=== PATIENT | female | born 1945 | race Two or more races ===

== ENCOUNTER 2022-02-26 09:34 | Inpatient (IN) | payer BC, MEDICARE, OTHER ==
[~2022-02-26] VITALS: Ht 154.9 cm; Wt 57.2 kg
[2022-02-26] MEDS ORDERED: ASPirin 325 MG TAB PO ONE (10:45)
[2022-02-26] MEDS ORDERED: MECLIZINE HCL 25 MG TAB PO ONE (10:45)
[2022-02-26 10:55] LABS: Urine Bacteria NONE SEEN /hpf (None Seen); Urine Blood Negative /uL (Negative); Urine Mucus FEW (None Seen); Urine Specific Gravity 1.022 (1.001-1.035); Urine WBC 15 /hpf (0 - 5)
[2022-02-26 11:03] LABS: Basophils # (auto) 0.1 10 ^3/uL (0-0.2); Basophils % (auto) 1.3 % (0.0-2.0); Eosinophils # (auto) 0 10 ^3/uL (0-0.8); Eosinophils % (auto) 1.2 % (0.0-7.0); Hematocrit 43.7 % (36.0-46.0); Hemoglobin 14.3 g/dL (12.2-16.2); Lymphocytes % (auto) 25.4 % (10.0-50.0); Mean Corpuscular Hemoglobin 29.9 pg (28.0-32.0); Mean Corpuscular Hgb Conc. 32.6 g/dL (32.0-36.0); Mean Corpuscular Volume 91.7 fL (80.0-100.0); Monocytes # (auto) 0.4 10 ^3/uL (0-1.3); Monocytes % (auto) 8.7 % (0.0-12.0); Neutrophils # (auto) 2.6 10 ^3/uL (1.6-8.6); Neutrophils % (auto) 63.4 % (37.0-80.0); Nucleated Red Blood Cells % 0.1 %; Red Blood Cells 4.77 10^6/uL (4.0-5.20); Red Cell Distribution Width 13.5 % (11.8-14.3); White Blood Cell 4.1 10^3/uL (4.4-10.8)
[2022-02-26 11:28] LABS: Albumin 3.9 g/dL (3.4-5.0); BUN/Creatinine Ratio 17.5; Bilirubin, Total 0.6 mg/dL (0.2-1.0); Calcium 9.3 mg/dL (8.5-10.1); Potassium 3.8 mmol/L (3.5-5.1); Total Protein 7.3 g/dL (6.4-8.2)
[2022-02-26] MEDS ORDERED: ACETAMINOPHEN 325 MG TAB PO PRN (14:00)
[2022-02-26] MEDS ORDERED: MECLIZINE HCL 25 MG TAB PO PRN (14:15)
[2022-02-26] MEDS ORDERED: PANTOPRAZOLE 40 MG/10 ML VIAL INJ IV ONE (14:15)
[2022-02-26 15:25] LABS: Cholesterol 197 mg/dL (< 200); Triglycerides 156 mg/dL (< 150)
[2022-02-26 15:28] LABS: HDL Cholesterol 86 mg/dL (40-59); LDL Cholesterol 109 mg/dL (< 100)
[2022-02-26 21:45] LABS: Alcohol, Urine < 3.0 mg/dL (0-10); Amphetamine Screen, Urine NEGATIVE (NEGATIVE); Barbiturate Scree,Urine NEGATIVE (NEGATIVE); Benzodiazephine Screen, Urine NEGATIVE (NEGATIVE); Cannabinoid Screen, Urine NEGATIVE (NEGATIVE); Cocaine Screen, Urine NEGATIVE (NEGATIVE); Opiate Scree,Urine NEGATIVE (NEGATIVE); Phencyclidine Screen, Urine NEGATIVE (NEGATIVE)
[2022-02-27] MEDS: SODIUM CHLORIDE 0.9% 1,000 ML IV SCH ×3 (04:25→18:50)
[2022-02-27] MEDS ORDERED: hydrALAZINE HCL 20 MG/ML VL IV ONE (05:45)
[2022-02-27 05:51] LABS: Basophils # (auto) 0.1 10 ^3/uL (0-0.2); Basophils % (auto) 1.5 % (0.0-2.0); Eosinophils # (auto) 0.1 10 ^3/uL (0-0.8); Eosinophils % (auto) 2.7 % (0.0-7.0); Lymphocytes # (auto) 1.1 10 ^3/uL (0.4-5.4); Lymphocytes % (auto) 29.8 % (10.0-50.0); Mean Corpuscular Hemoglobin 29.9 pg (28.0-32.0); Mean Corpuscular Hgb Conc. 32.6 g/dL (32.0-36.0); Mean Corpuscular Volume 91.6 fL (80.0-100.0); Monocytes # (auto) 0.5 10 ^3/uL (0-1.3); Monocytes % (auto) 13.1 % (0.0-12.0); Neutrophils % (auto) 52.9 % (37.0-80.0); Nucleated Red Blood Cells % 0.1 %; Red Cell Distribution Width 13.9 % (11.8-14.3); White Blood Cell 3.8 10^3/uL (4.4-10.8)
[2022-02-27 06:02] LABS: Albumin 3.6 g/dL (3.4-5.0); BUN/Creatinine Ratio 17.7; Calcium 9.2 mg/dL (8.5-10.1); Potassium 4.2 mmol/L (3.5-5.1)
[2022-02-27 06:05] LABS: Bilirubin, Total 0.7 mg/dL (0.2-1.0); Total Protein 7.4 g/dL (6.4-8.2)
[2022-02-27] MEDS: ASPirin 81 mg TAB PO SCH (11:04)
[2022-02-27] MEDS: ENOXAPARIN SOD 40 MG/0.4 ML SYRINGE SC SCH (11:04)
[2022-02-27] MEDS: PANTOPRAZOLE 40 MG/10 ML VIAL INJ IV SCH (11:04)
[2022-02-27] MEDS ORDERED: LISINOPRIL 10 MG TAB PO ONE (16:00)
[2022-02-27 18:21] VITALS: BP 172/90
[2022-02-27] MEDS: hydrALAZINE HCL 20 MG/ML VL IV PRN (19:42)
[2022-02-27] MEDS ORDERED: POM PO (19:55)
[2022-02-27] MEDS ORDERED: LEVO25TA6 PO (19:55)
[2022-02-27] MEDS ORDERED: OMEP-260 PO (19:55)
[2022-02-27] MEDS ORDERED: CHOL20009 PO (19:55)
[2022-02-27] MEDS ORDERED: NIFE1TAB30 PO (19:55)
[2022-02-27] MEDS ORDERED: LISI-716 PO (19:55)
[2022-02-27] MEDS ORDERED: PSYL58.632 PO (19:55)
[2022-02-27 20:00] VITALS: BP 157/84
[2022-02-27 22:14] VITALS: BP 157/84
[2022-02-28] VITALS (9 sets, daily range): BP systolic 146–162; BP diastolic 81–94
[2022-02-28] MEDS: hydrALAZINE HCL 20 MG/ML VL IV PRN ×3 (03:55→22:02)
[2022-02-28] MEDS: LEVOTHYROXINE SODIUM 25 MCG TAB PO SCH (06:27)
[2022-02-28] MEDS: SODIUM CHLORIDE 0.9% 1,000 ML IV SCH ×2 (08:54→23:12)
[2022-02-28] MEDS: LISINOPRIL 10 MG TAB PO SCH (09:43)
[2022-02-28] MEDS: ENOXAPARIN SOD 40 MG/0.4 ML SYRINGE SC SCH (09:44)
[2022-02-28] MEDS ORDERED: LORazepam 2MG/ML-1ML VIAL IV PRN (09:45)
[2022-02-28] MEDS: PANTOPRAZOLE 40 MG/10 ML VIAL INJ IV SCH (09:53)
[2022-02-28] MEDS: ASPirin 81 mg TAB PO SCH (09:57)
[2022-02-28] MEDS ORDERED: ATORVASTATIN 20 MG TAB PO SCH (22:00)
[2022-03-01 05:17] VITALS: BP 150/90
[2022-03-01] MEDS: LEVOTHYROXINE SODIUM 25 MCG TAB PO SCH (06:04)
[2022-03-01] MEDS: hydrALAZINE HCL 20 MG/ML VL IV PRN (06:05)
[2022-03-01 09:00] VITALS: BP 139/86
[2022-03-01] MEDS: ENOXAPARIN SOD 40 MG/0.4 ML SYRINGE SC SCH (09:31)
[2022-03-01] MEDS: LISINOPRIL 10 MG TAB PO SCH (09:31)
[2022-03-01] MEDS: ASPirin 81 mg TAB PO SCH (09:31)
[2022-03-01] MEDS ORDERED: ASPI-325 PO (11:40)
[2022-03-01] MEDS ORDERED: ATOR20TA50 PO (11:40)
== END 2022-03-01 13:32 | disposition home or self-care (01) | DRG 149 ==
LOC: ER 09:34 → OVERFLOW 14:06 → TELE-EAST 02-27 16:47
PROVIDERS: ADMIT Nurse Practitioner Family; ATTEND Student in an Organized Health Care Education/Training Program
DX: H81.10 Benign paroxysmal vertigo, unspecified ear (principal); G45.9 Transient cerebral ischemic attack, unspecified; I10 Essential (primary) hypertension; Z20.822 Contact with and (suspected) exposure to COVID-19; E78.5 Hyperlipidemia, unspecified; F17.200 Nicotine dependence, unspecified, uncomplicated; Z79.82 Long term (current) use of aspirin; Z79.899 Other long term (current) drug therapy; Z83.3 Family history of diabetes mellitus; Z90.710 Acquired absence of both cervix and uterus
CPT/HCPCS: 36415; 70450; 70551; 71045; 80053; 80061; 80307; 81001; 83036; 84443; 84484; 85025; 87426; 93306; 93886; 96372; 96374; 96375; C9113; G0378

== ENCOUNTER 2024-07-26 14:27 | Inpatient (IN) | payer MEDICARE ==
[~2024-07-26] VITALS: Ht 154.9 cm; Wt 60.5 kg
[~2024-07-26 14:27] MED LIST: ASPI-325 PO; ATOR20TA50 PO; CHOL20009 PO; LEVO25TA6 PO; LISI10TA34 PO; NIFE1TAB30 PO; OMEP1CAP70 PO; POM PO; PSYL58.632 PO
--- NOTE | 2024-07-26 16:18 | ED.PDOC ---
Musculoskeletal HPI Comments A 79 YEAR OLD FEMALE PRESENTS TO THE ED WITH COMPLAINT OF BILATERAL FOOT AND ANKLE SWELLING. PATIENT STATES SHE HAS BEEN EXPERIENCING BILATERAL ANKLE AND FOOT SWELLING WITH PAIN FOR THE PAST 2 DAYS. WALKING AND PHYSICAL ACTIVITY INCREASES BILATERAL ANKLE AND FOOT PAIN. PATIENT DENIES FALL INJURY, FEVER, CHILLS, SHORTNESS OF BREATH, CHEST PAIN, ABDOMINAL PAIN, NAUSEA, VOMITING, HEADACHE, OR OTHER COMPLAINTS. NO OTHER SYMPTOMS OR MODIFYING FACTORS AT THIS TIME. PATIENT IS ALERT, ORIENTED X 4, AND HAS STEADY GAIT. Chief Complaint: Lower Extremity Time Seen by MD: 14:43 Reviewed Notes: Nurses Notes, Medications, Allergies Allergies: Coded Allergies: NO KNOWN ALLERGIES (Unverified , 02/26/22) Home Meds Active Scripts Atorvastatin Calcium (ATORVASTATIN CALCIUM) 20 Mg Tab, 40 MG PO HS for 30 Days, #60 TAB Prov:LENY SAMPSON MD 03/01/22 Aspirin (Aspirin Low Dose) 81 Mg Tab, 81 MG PO DAILY for 30 Days, #30 TAB Prov:LENY SAMPSON MD 03/01/22 Reported Medications Psyllium (Metamucil Fiber) 51.7 % Wild, 51.7 % PO DAILY, PACK 02/27/22 Cholecalciferol (VITAMIN D) 2,000 Unit Tab, 2000 UNIT PO DAILY, TAB 02/27/22 Patients Own Medication (PATIENTS OWN MEDICATION) ., 5 MG PO DAILY PTS OWN MED-OBTAIN FROM PT AND SEND TO RX DRUG: OXYBUTYNIN FREQ: QD RX# EXP: DATE DISP: TECH: RPH: 02/27/22 Omeprazole (Omeprazole Dr) 20 Mg Cap, 20 MG PO BID, CAP 02/27/22 Nifedipine (Nifedipine Er) 60 Mg Tab, 1 TAB PO DAILY, #30 TAB 5 Refills 02/27/22 Lisinopril (Lisinopril) 10 Mg Tab, 10 MG PO DAILY for 30 Days, MG 02/27/22 Levothyroxine Sodium (Levothyroxine Sodium) 25 Mcg Tab, 75 MCG PO QAM, MCG 02/27/22 Information Source: Patient Mode of Arrival: Ambulatory Location: Bilateral Extremity Location: Ankle, Foot Timing: Days Prehospital treatment: None Severity: Moderate Able to Move Extremity: Yes Bear Weight: Fully Pain: Moderate Mechanism: No Trauma, Spontaneous Circumstances: Spontaneous Onset of Symptoms: Spontaneous Symptoms: Swelling, Pain, Erythema DVT Risk Factors: NONE Associated signs and symptoms: Ankle pain, Foot pain Past Medical History PAST MEDICAL HISTORY: High Lipids, HTN, Thyroid Surgical History: Appendectomy, Hysterectomy, Tonsillectomy TOUCH UP EDGER History: No Pertinent TOUCH UP EDGER History Family History Family History: Reviewed,noncontributory to illness Social History Smoker: Non-Smoker Alcohol: Denies ETOH Use Drugs: Denies Drug Use Lives In: Home Constitutional: denies: chills, diaphoresis, fatigue, fever, malaise, sweats, weakness, others EENTM: denies: blurred vision, double vision, ear bleeding, ear discharge, ear drainage, ear pain, ear ringing, eye pain, eye redness, hearing loss, mouth pain, mouth swelling, nasal discharge, nose bleeding, nose congestion, nose pain, photophobia, tearing, throat pain, throat swelling, voice changes, others Respiratory: denies: cough, hemoptysis, orthopnea, SOB at rest, shortness of breath, SOB with excertion, stridor, wheezing, others Cardiovascular: denies: chest pain, dizzy spells, diaphoresis, Dyspnea on exertion, edema, irregular heart beat, left arm pain, lightheadedness, palpitations, PND, syncope, others Gastrointestinal: denies: abdomen distended, abdominal pain, blood streaked bowels, constipated, diarrhea, dysphagia, difficulty swallowing, hematemesis, melena, nausea, poor appetite, poor fluid intake, rectal bleeding, rectal pain, vomiting, others Genitourinary: denies: abnormal vagina bleeding, burning, dyspareunia, dysuria, flank pain, frequency, hematuria, incontinence, pain, , vagina discharge, urgency, others Neurological: denies: dizziness, fainting, headache, left sided numbness, left sided weakness, numbness, paresthesia, pre-existing deficit, right sided numbness, right sided weakness, seizure, speech problems, tingling, tremors, weakness, others Musculoskeletal: reports: joint pain, joint swelling, others (BILATERAL FOOT AND ANKLE SWELLING WITH PAIN); denies: back pain, gout, muscle pain, muscle stiffness, neck pain Integumetry: denies: bruises, change in color, change in hair/nails, dryness, laceration, lesions, lumps, rash, wounds, others Allergic/Immunocompromised: denies: Difficulty Healing, Frequent Infections, Hives, Itching, others Hematologic/Lymphatic: denies: anemia, blood clots, easy bleeding, easy bruising, swollen glands, others Endocrine: denies: excessive hunger, excessive sweating, excessive thirst, excessive urination, flushing, intolerance to cold, intolerance to heat, unexplained weight gain, unexplained weight loss, others Psychiatric: denies: anxiety, bipolar disorder, depression, hopeless, panic disorder, schizophrenia, sleepless, suicidal, others All Other Systems: Reviewed and Negative Physical Exam General Appearance: No Apparent Distress, Normal HEENT: Normal ENT Inspection, PERRL/EOMI, Pharynx Normal, TMs Normal Neck: Full Range of Motion, Non-Tender, Normal, Normal Inspection Respiratory: Chest Non-Tender, Lungs Clear, No Accessory Muscle Use, No Respiratory Distress, Normal Breath Sounds Cardiovascular: No Edema, No JVD, No Murmur, No Gallop, Normal Peripheral Pulses, Regular Rate/Rhythm Breast Exam: Deferred Gastrointestinal: No Organomegaly, Non Tender, No Pulsatile Mass, Normal Bowel Sounds, Soft Genitalia: Deferred Pelvic: Deferred Rectal: Deferred Extremities: No calf tenderness, Normal capillary refill, Normal range of motion, No pedal edema, Swelling (TENDERNESS, MILD SWELLING AND REDNESS ON BILATERAL FOOT AND ANKLE, NO BONY TENDERNESS AND DEFORMITY. ), Tender (REDNESS AND MILD SWELLING ON BILATERAL FOOT AND ANKLE. ) Musculoskeletal : Apperance: Normal Neurologic: Alert, gis engineer II-XII nml as Tested, No Motor Deficits, Normal Affect, Normal Mood, No Sensory Deficits Cerebellar Function: Normal Reflexes: Normal Skin: Dry, Warm, Other (LOCALIZED ERYTHEMA, MILD SWELLING AND TENDERNESS ON BILATERAL ANKLE AND FOOT, NO LOWER LEGS REDNESS AND SWELLING, NO DVT SIGNS.+CELLULITIS OF FOOT and ankle. ) Peripheral Pulses: 2+ carotid (R), 2+ carotid (L), 2+ dorsalis pedis (R), 2+ dorsalis pedis (L) Lymphatic: No Adenopathy Was a procedure done? Was a procedure done?: No Differential Diagnosis EXT Differential Diagnosis: Cellulitis, CHF, Sprain, DJD, Strain, Arthritis X-Ray, Labs, Meds, VS Vital Signs Date Time Temp Pulse Resp B/P (MAP) Pulse Ox O2 Delivery O2 Flow Rate FiO2 07/26/24 17:32 99.7 98 16 157/88 (111) 95 99.7 07/26/24 15:56 108 18 95 Room Air 07/26/24 15:56 97.8 108 18 142/84 (103) 95 97.8 07/26/24 14:34 97.8 108 18 142/84 (103) 95 97.8 Lab Test 07/26/24 16:25 07/26/24 16:00 Range/Units White Blood Count 4.5 4.4-10.8 10^3/uL Red Blood Count 5.03 4.0-5.20 10^6/uL Hemoglobin 15.0 12.2-16.2 g/dL Hematocrit 44.5 36.0-46.0 % Mean Corpuscular Volume 88.5 80.0-100.0 fL Mean Corpuscular Hemoglobin 29.8 28.0-32.0 pg Mean Corpuscular Hemoglobin Concent 33.7 32.0-36.0 g/dL Red Cell Distribution Width 14.0 11.8-14.3 % Platelet Count 168 140-450 10^3/uL Mean Platelet Volume 10.0 6.9-10.8 fL Neutrophils (%) (Auto) 65.5 37.0-80.0 % Lymphocytes (%) (Auto) 18.7 10.0-50.0 % Monocytes (%) (Auto) 14.1 H 0.0-12.0 % Eosinophils (%) (Auto) 1.1 0.0-7.0 % Basophils (%) (Auto) 0.6 0.0-2.0 % Neutrophils # (Auto) 2.9 1.6-8.6 10 ^3/uL Lymphocytes # (Auto) 0.8 0.4-5.4 10 ^3/uL Monocytes # (Auto) 0.6 0-1.3 10 ^3/uL Eosinophils # (Auto) 0 0-0.8 10 ^3/uL Basophils # (Auto) 0 0-0.2 10 ^3/uL Nucleated Red Blood Cells 0.1 % Erythrocyte Sedimentation Rate Pending Sodium Level 137 136-145 mmol/L Potassium Level 3.2 L 3.5-5.1 mmol/L Chloride Level 101 98-107 mmol/L Carbon Dioxide Level 26 20-31 mmol/L Anion Gap 10 5-15 Blood Urea Nitrogen 15 9-23 mg/dL Creatinine 1.01 0.550-1.02 mg/dL Glomerular Filtration Rate Calc 56 >90 mL/min BUN/Creatinine Ratio 14.9 10.0-20.0 Serum Glucose 101 74-106 mg/dL Lactic Acid Level 1.4 0.4-2.0 mmol/L Uric Acid 4.5 3.1-7.8 mg/dL Calcium Level 10.4 8.7-10.4 mg/dL Urine Color Yellow Yellow Urine Clarity Clear Clear Urine pH 6.0 5.0-9.0 Urine Specific [place] 1.023 1.001-1.035 Urine Protein 1+ H Negative Urine Ketones Negative Negative Urine Blood 2+ H Negative /uL Urine Nitrite Negative Negative Urine Bilirubin Negative Negative Urine Urobilinogen Normal Negative mg/dL Urine Leukocyte Esterase 2+ Negative /uL Urine RBC 10 0 - 4 /hpf Urine Microscopic WBC 5 0-5 /HPF Urine Squamous Epithelial Cells Few <5 /hpf Urine Bacteria None seen None Seen /hpf Urine Hyaline Casts Few 0 - 2 /lpf Urine Mucus Few None Seen Urine Glucose Normal Normal mg/dL Current Medications Medications (Trade) Dose Ordered Sig/Jf Route Start Time Stop Time Status Last Admin Ceftriaxone Sodium 50 ml @ 100 mls/hr ONCE ONCE IV 07/26/24 17:30 07/26/24 17:59 DC 07/26/24 17:43 Sodium Chloride 1,000 ml @ 150 mls/hr [id number] ONCE IV 07/26/24 17:30 07/27/24 00:09 07/26/24 17:42 CLINICAL INDICATION: PAIN AND REDNESS, NO INJURY TECHNIQUE: 2 radiographic views of the right foot were obtained. Comparison: None FINDINGS/IMPRESSION: There is no evidence of acute fracture or dislocation. Sesamoid superimpose over cuboid. The visualized joint space is well maintained. The alignment is anatomical. There is no radiopaque foreign body. ATED BY: FRANCISCA ESCOBAR Jr., DO DICTATED DATE/TIME: 07/26/241721 SIGNED BY: FRANCISCA ESCOBAR Jr., SIGNED DATE/TIME: 07/26/241721 CC: CLINICAL INDICATION: PAIN AND REDNESS, NO INJURY TECHNIQUE: 2 radiographic views of the left foot were obtained. Comparison: None FINDINGS/IMPRESSION: There is no evidence of acute fracture or dislocation. The visualized joint space is well maintained. The alignment is anatomical. There is no radiopaque foreign body. ATED BY: FRANCISCA ESCOBAR Jr., DO DICTATED DATE/TIME: 07/26/241718 SIGNED BY: FRANCISCA ESCOBAR Jr., SIGNED DATE/TIME: 07/26/241718 CC: X-Ray, Labs, Meds, VS Comment EXTERNAL MEDICAL RECORDS REVIEWED: [NONE] INDEPENDENT HISTORIANS: [NONE] SOCIAL DETERMINANTS OF HEALTH: [NONE] LABS ORDERED: CBC, BMP, BNP, ESR, UA REVIEWED AND INTERPRETED RESULTS: K 3.2 IMAGING ORDERED: XR FOOT BILAT TREATMENTS ORDERED: NS 1 L IV, ROCEPHIN 1 G IV, CLINDAMYCIN 600 MG IV, POTASSIUM 40 MEQ P.O. PROCEDURES PERFORMED: NONE CRITICAL CARE TIME: NONE I HAVE DISCUSSED THE PATIENT WITH THE ATTENDING PHYSICIAN DR. TRAVIS AND HE AGREES WITH THE PATIENT'S PLAN OF CARE. UPON MY PHYSICAL EXAMINATION, THE PATIENT HAD REDNESS, SWELLING, AND PAIN TO HER BILATERAL FEET AND ANKLES CONSISTENT WITH ACUTE CELLULITIS, BUT NO OPEN WOUND OR PUS DRAINAGE NOTED. LABS WERE ORDERED FOR THE PATIENT WHICH REVEALED A POTASSIUM OF 3.2, BUT NO OTHER ACUTE FINDINGS. AN X-RAY OF THE PATIENT'S BILATERAL FEET WAS DONE WHICH WAS NORMAL. DUE TO THE PATIENT'S AGE, MEDICAL HISTORY, AND THE FACT THAT HER PHYSICAL EXAM FINDINGS APPEARING TO BE ACUTE CELLULITIS, I HAVE DETERMINED THE PATIENT NEEDS TO BE ADMITTED FOR FURTHER TREATMENT AND EVALUATION. THE ON-CALL HOSPITALIST WILL BE CONTACTED FOR ADMISSION OF THIS PATIENT. Images Reviewed?: Images reviewed and evaluated by me Time of 1ST Reevaluation: 18:00 Reevaluation 1ST: Unchanged Patient Education/Counseling: Diagnosis, Treatment Family Education/Counseling: Diagnosis, Treatment Departure 1 Departure Time of Disposition: 18:00 Impression: Primary Impression: Cellulitis of both feet Additional Impression: Hypokalemia Disposition: ADMITTED INPATIENT Condition: Serious Critical Care Note Critical Care Time?: No Stability Stability form required: No Unstable for transfer: Requires medication, ED Physician Assesment, Possible rapid decline I personally scribed for GRIS BORDEN ([email or web address]) on 07/26/24 at 16:18. Electronically submitted by Jason Servni ([email or web address]). I personally scribed for GRIS BORDEN ([email or web address]) on 07/26/24 at 17:41. Electronically submitted by Jason Servin ([email or web address]). GRIS BORDEN Jul 26, 2024 16:18
[2024-07-26 16:48] LABS: Basophils # (auto) 0 10 ^3/uL (0-0.2); Basophils % (auto) 0.6 % (0.0-2.0); Eosinophils # (auto) 0 10 ^3/uL (0-0.8); Eosinophils % (auto) 1.1 % (0.0-7.0); Hematocrit 44.5 % (36.0-46.0); Lymphocytes # (auto) 0.8 10 ^3/uL (0.4-5.4); Lymphocytes % (auto) 18.7 % (10.0-50.0); Mean Corpuscular Hemoglobin 29.8 pg (28.0-32.0); Mean Corpuscular Hgb Conc. 33.7 g/dL (32.0-36.0); Mean Corpuscular Volume 88.5 fL (80.0-100.0); Monocytes # (auto) 0.6 10 ^3/uL (0-1.3); Monocytes % (auto) 14.1 % (0.0-12.0); Neutrophils # (auto) 2.9 10 ^3/uL (1.6-8.6); Neutrophils % (auto) 65.5 % (37.0-80.0); Nucleated Red Blood Cells % 0.1 %; Platelet Count (auto) 168 10^3/uL (140-450); Red Blood Cells 5.03 10^6/uL (4.0-5.20); White Blood Cell 4.5 10^3/uL (4.4-10.8)
[2024-07-26 16:52] LABS: Chloride 101 mmol/L (98-107); Sodium 137 mmol/L (136-145)
[2024-07-26 16:53] LABS: Anion Gap 10 (5-15); Calcium 10.4 mg/dL (8.7-10.4); Carbon Dioxide 26 mmol/L (20-31)
[2024-07-26 16:54] LABS: Potassium 3.2 mmol/L (3.5-5.1)
[2024-07-26 16:58] LABS: BUN/Creatinine Ratio 14.9 (10.0-20.0); Blood Urea Nitrogen 15 mg/dL (9-23); Glucose 101 mg/dL (74-106)
[2024-07-26 17:08] LABS: Urine Bacteria None Seen /hpf (None Seen)
[2024-07-26 17:20] LABS: Urine Blood 2+ /uL (Negative); Urine Clarity Clear (Clear); Urine Color Yellow (Yellow); Urine Hyaline Cast FEW /lpf (0 - 2); Urine Mucus FEW (None Seen); Urine Protein, UAD 1+ (Negative); Urine Specific Gravity 1.023 (1.001-1.035); Urine Squamous Epithelial Cell FEW /hpf (<5); Urine Urobilinogen Normal (Negative); Urine WBC 5 /HPF (0-5)
--- NOTE | 2024-07-26 17:21 | DVH ---
CLINICAL INDICATION: PAIN AND REDNESS, NO INJURY TECHNIQUE: 2 radiographic views of the left foot were obtained. Comparison: None FINDINGS/IMPRESSION: There is no evidence of acute fracture or dislocation. The visualized joint space is well maintained. The alignment is anatomical. There is no radiopaque foreign body.
--- NOTE | 2024-07-26 17:24 | DVH ---
CLINICAL INDICATION: PAIN AND REDNESS, NO INJURY TECHNIQUE: 2 radiographic views of the right foot were obtained. Comparison: None FINDINGS/IMPRESSION: There is no evidence of acute fracture or dislocation. Sesamoid superimpose over cuboid. The visualized joint space is well maintained. The alignment is anatomical. There is no radiopaque foreign body.
[2024-07-26] MEDS: SODIUM CHLORIDE 0.9% 1,000 ML IV ONE (17:42)
[2024-07-26] MEDS: cefTRIAXone 1GM/50ML D5W 50 ML IV ONE ×2 (17:43)
--- NOTE | 2024-07-26 18:26 | DVHHPRES ---
History of Present Illness Resident Creating Document: LARRY GREER RESIDENT History of Present Illness This is a 79-year-old female with past medical history of hypertension, hypothyroidism presented to the ED with a chief complaint of pain and swelling of both feet for 4 days prior to this admission . The patient states that without any provocative factors the swelling of both feet started suddenly and getting worse that prompted this visit. The patient also mentioned dysuria, urgency for the same duration. She denied chest pain, shortness of breath, palpitation, dizziness, blurred vision, abdominal pain, nausea, vomiting, altered bowel habit, positive sick contact or any recent traveling. PCP: Dr. Josh Zepeda Past Medical History Hypertension, hypothyroidism Past Surgical History Hysterectomy, thyroidectomy, tonsillectomy, appendectomy Family History No significant family history Past Social History Lives with sister Nonsmoker, nonalcoholic and never tried any drugs Review of Systems Constitutional: No: Fever, Chills, Sweats, Weakness, Malaise, Other Eyes: No: Pain, Vision change, Conjunctivae inflammation, Eyelid inflammation, Other, Redness ENT: No: Ear pain, Ear discharge, Nose pain, Nose discharge, Nose congestion, Mouth pain, Mouth swelling, Throat pain, Throat swelling, Other Respiratory: No: Cough, Dry, Shortness of breath, SOB with excertion, Wheezing, Hemoptysis, Pleuritic Pain, Sputum, Wheezing, Other Cardiovascular: No: Chest Pain, Palpitations, Orthopnea, Paroxysmal Noc. Dyspnea, Edema, Lt Headedness, Other Gastrointestinal: No: Nausea, Vomiting, Abdominal Pain, Diarrhea, Constipation, Melena, Hematochezia, Other Genitourinary: Dysuria, Frequency; No Incontinence, No Hematuria, No Retention, No Other Musculoskeletal: foot pain; No: other, neck pain, shoulder pain, arm pain, back pain, hand pain, leg pain Skin: No: Rash, Lesions, Jaundice, Bruising, Other Neurological: No: Weakness, Numbness, Incoordination, Change in speech, Confusion, Seizures, Other Allergies: Coded Allergies: NO KNOWN ALLERGIES (Unverified , 02/26/22) Exam Vital Signs Vital Signs Date Time Temp Pulse Resp B/P (MAP) Pulse Ox O2 Delivery O2 Flow Rate FiO2 07/26/24 17:32 99.7 98 16 157/88 (111) 95 99.7 07/26/24 15:56 Room Air Exam Physical examination: General Appearance: Alert, Oriented X3, Cooperative, No acute distress HEENT: Atraumatic, PERRLA, EOMI, Mucous membrane moist/pink Respiratory: Clear to auscultation, Normal air movement Cardiovascular: Regular rate, Normal S1, Normal S2, No murmurs, no chest wall tenderness Abdominal: Normal bowel sounds, Soft, No tenderness, No hepatospenomegaly, No masses Extremities: Bilateral pedal edema 1+, No clubbing, No cyanosis, Normal pulses Skin: No rashes, No breakdown, No significant lesion Neuro: Normal gait, Normal speech, Strength at 5/5 X4 ext, Normal tone, Sensation intact, grossly intact cranial nerves. Psych/Mental Status: Mental status NL, Mood NL Labs/Xrays Labs Test 07/26/24 16:25 07/26/24 16:00 Range/Units White Blood Count 4.5 4.4-10.8 10^3/uL Red Blood Count 5.03 4.0-5.20 10^6/uL Hemoglobin 15.0 12.2-16.2 g/dL Hematocrit 44.5 36.0-46.0 % Mean Corpuscular Volume 88.5 80.0-100.0 fL Mean Corpuscular Hemoglobin 29.8 28.0-32.0 pg Mean Corpuscular Hemoglobin Concent 33.7 32.0-36.0 g/dL Red Cell Distribution Width 14.0 11.8-14.3 % Platelet Count 168 140-450 10^3/uL Mean Platelet Volume 10.0 6.9-10.8 fL Neutrophils (%) (Auto) 65.5 37.0-80.0 % Lymphocytes (%) (Auto) 18.7 10.0-50.0 % Monocytes (%) (Auto) 14.1 H 0.0-12.0 % Eosinophils (%) (Auto) 1.1 0.0-7.0 % Basophils (%) (Auto) 0.6 0.0-2.0 % Neutrophils # (Auto) 2.9 1.6-8.6 10 ^3/uL Lymphocytes # (Auto) 0.8 0.4-5.4 10 ^3/uL Monocytes # (Auto) 0.6 0-1.3 10 ^3/uL Eosinophils # (Auto) 0 0-0.8 10 ^3/uL Basophils # (Auto) 0 0-0.2 10 ^3/uL Nucleated Red Blood Cells 0.1 % Sodium Level 137 136-145 mmol/L Potassium Level 3.2 L 3.5-5.1 mmol/L Chloride Level 101 98-107 mmol/L Carbon Dioxide Level 26 20-31 mmol/L Anion Gap 10 5-15 Blood Urea Nitrogen 15 9-23 mg/dL Creatinine 1.01 0.550-1.02 mg/dL Glomerular Filtration Rate Calc 56 >90 mL/min BUN/Creatinine Ratio 14.9 10.0-20.0 Serum Glucose 101 74-106 mg/dL Lactic Acid Level 1.4 0.4-2.0 mmol/L Uric Acid 4.5 3.1-7.8 mg/dL Calcium Level 10.4 8.7-10.4 mg/dL Urine Color Yellow Yellow Urine Clarity Clear Clear Urine pH 6.0 5.0-9.0 Urine Specific [place] 1.023 1.001-1.035 Urine Protein 1+ H Negative Urine Ketones Negative Negative Urine Blood 2+ H Negative /uL Urine Nitrite Negative Negative Urine Bilirubin Negative Negative Urine Urobilinogen Normal Negative mg/dL Urine Leukocyte Esterase 2+ Negative /uL Urine RBC 10 0 - 4 /hpf Urine Microscopic WBC 5 0-5 /HPF Urine Squamous Epithelial Cells Few <5 /hpf Urine Bacteria None seen None Seen /hpf Urine Hyaline Casts Few 0 - 2 /lpf Urine Mucus Few None Seen Urine Glucose Normal Normal mg/dL Assessment/Plan Assessment/Plan Assessment and plan: # Bilateral feet swelling, rule out cellulitis # Rule out DVT - Bilateral feet x-ray demonstrated no acute fracture or dislocation - Ordered Doppler DVT scan of the lower limb # Acute complicated cystitis # Rule out kidney stone - UA was consistent with UTI and hematuria - CT abdomen pelvis without contrast and urine bacterial culture - IV ceftriaxone 1 g daily # Hypokalemia - Replenished # Hypertensive heart disease - Ordered echo - Continue aspirin 81 mg daily, atorvastatin 20 mg at HS, lisinopril 10 mg daily and nifedipine ER 60 mg daily # Severe Hypothyroidism - TSH is 22.04 - Levothyroxine 75 mcg at q.a.m. # PUD prophylaxis - Pepcid 20 mg p.o. daily # DVT prophylaxis - Lovenox 40 mg sc daily Goal of care discussed with the patient for more than 20 minutes DNR Plan discussed with Dr. Nelson Plan discussed with: Patient, Other My Orders Orders - LARRY GREER Procedure Category Date Status Time Admit ADMIT 07/26/24 Transmitted 18:19 Ct Ab Pel Wo Con-No CT 07/26/24 Logged Oral Or Iv 18:21 Thyroid Stimulating LAB 07/26/24 Logged Hormone 18:23 Chest Xray 1 View XY 07/26/24 Logged 18:23 Covid19 Antigen Andreia LAB 07/26/24 Logged Rapid Influenza A&B LAB 07/26/24 Logged 18:23 Date of Service: Jul 26, 2024 Billing Provider: ELMA NELSON MD Common Visit Codes: [id number] INP/OBS CARE (HIGH) LARRY GREER RESIDENT Jul 26, 2024 18:26 ELMA NELSON MD Jul 29, 2024 10:46
[2024-07-26] MEDS: POTASSIUM CHL 20 Meq TABLET PO ONE (19:04)
--- NOTE | 2024-07-26 19:28 | DVH ---
CHEST RADIOGRAPH Indication: hypoxia Technique: Single frontal view of the chest was obtained Comparison: CHEST PORTABLE on DOS: 02/26/22, CXRP on DOS: 02/26/22 FINDINGS: There is very prominent s shaped scoliotic curvature involving the thoracolumbar spine it is 41 degre es dextro in the thoracic spine and 31 degrees levo in the lumbosacral spine. Heart size appears with in normal limits. There is volume loss in the right lung base due to elevation of the right hemidiaph ragm I do not appreciate any infiltrates or effusions peripheral lung markings are slightly prominent but are probably still within normal limits.. IMPRESSION: 1. Large s shaped scoliotic curvature involving the thoracolumbar spine no acute pulmonary disease ap preciated but I would recommend given the patient's symptoms CT examination of the chest
--- NOTE | 2024-07-26 19:41 | DVH ---
Exam: CT CT AB PEL WO CON-NO ORAL OR IV History: hematuria Comparison Study: None available at time of dictation. TECHNIQUE: Multidetector CT of the abdomen was performed from lung bases to pubic symphysis. Imaging was performed without IV contrast. Axial, coronal and sagittal multiplanar reformats were obtained fr om the axial data set by the technologist. Radiation Dose Information: CT Dose: CTDI volume is 5.41 mGy. Dose-length product is 259.3 mGy*cm FINDINGS: Evaluation of solid organs is limited due to lack of intravenous contrast use. Findings: Lung Bases: No acute or significant lung base finding. Normal heart size. No pleural or pericardial effusion. Liver: The liver is normal in size. No focal lesions. Gallbladder and Biliary Tree: No calcified gallstones Spleen: Unremarkable Pancreas: The pancreas is grossly normal in appearance. Adrenal Glands: Unremarkable Kidneys: Punctate nonobstructing calculus left kidney. 2.5 cm hypodense lesion cortex right kidney m ost likely a cyst. Bladder: Grossly unremarkable for degree of distention. Bowel: The stomach is grossly normal in appearance. Small bowel and colon are normal in caliber and d istribution. The appendix is not visualized; however, no secondary findings of acute appendicitis id entified. Ascites: Absent Lymphadenopathy: No mesenteric, retroperitoneal or periportal lymphadenopathy. Abdominal Wall and Mesentery: Unremarkable. Vasculature: The visualized abdominal aorta is normal in size and caliber. Evaluation of abdominal a nd pelvic vessels is limited due to lack of intravenous contrast. Pelvic Organs: Unremarkable Musculoskeletal: No aggressive focal bony lesions, acute fractures or dislocation. Soft tissues: Unremarkable IMPRESSION: 1. 2-3 mm distal left ureteral calculus near the ureterovesical junction series 2 image 78. 2. Punctate nonobstructing left renal calculus 3. 2.5 cm cortical cyst right kidney 4. No calcified gallstones 5. No findings to suggest bowel obstruction. Stool throughout the colon Radiation optimization: All CT scans at this facility use at least one of these dose optimization te chniques: automated exposure control mA and/or kV adjustment per patient size (includes targeted exa ms where dose is matched to clinical indication) or iterative reconstruction.
--- NOTE | 2024-07-26 20:10 | DVH ---
Bilateral lower extremity venous duplex Clinical History: To rule out DVT Comparison: None Technique: Duplex Doppler evaluation of the deep venous systems of both lower extremities from the co mmon femoral veins to the popliteal veins including color Doppler and spectral/pulsed waveform analys is was performed. Findings: RIGHT SIDE: The common femoral vein demonstrates appropriate compressibility and waveform variability . There is compressibility/patency of the great saphenous vein at the proximal thigh . The femoral vein demonstrates appropriate compressibility and waveform variability . The deep femoral vein demonstrates appropriate compressibility and waveform variability . The popliteal vein demonstrates appropriate compressibility and waveform variability . There is color flow at the tibioperoneal trunk and in the posterior tibial vein. A 3.6 x 1.1 x 3.8 cm Bazzi's cyst noted. LEFT SIDE: The common femoral vein demonstrates appropriate compressibility and waveform variability . There is compressibility/patency of the great saphenous vein at the proximal thigh . The femoral vein demonstrates appropriate compressibility and waveform variability . The deep femoral vein demonstrates appropriate compressibility and waveform variability . The popliteal vein demonstrates appropriate compressibility and waveform variability . There is color flow at the tibioperoneal trunk and in the posterior tibial vein. Impression: 1. No right or left femoropopliteal venous thrombosis. 2. Moderate-size right Bazzi's cyst.
[2024-07-26 20:40] LABS: COVID19 ANTIGEN SOFIA FIA NEGATIVE (NEGATIVE)
[2024-07-26 20:41] LABS: Rapid Influenza A Negative (Negative); Rapid Influenza B Negative (Negative)
[2024-07-26 21:14] LABS: Erythrocyte Sedimentation Rate 12 mm/hr (0-20)
[2024-07-26 21:22] VITALS: BP 153/91; PULSE 94; RESP 24; TEMP 98; O2SAT 94
[2024-07-26 21:45] VITALS: BP 153/91; PULSE 94; RESP 24; TEMP 98; O2SAT 94
[2024-07-26] MEDS ORDERED: AMLO1TAB22 PO (21:47)
[2024-07-26] MEDS: CLINDAMYCIN 600MG IV 50 ML IV ONE (22:25)
[2024-07-26] MEDS: ATORVASTATIN 20 MG TAB PO SCH (22:26)
[2024-07-26] MEDS: ENOXAPARIN SOD 40 MG/0.4 ML SYRINGE SC ONE (22:26)
[2024-07-27] VITALS (8 sets, daily range): BP systolic 126–156; BP diastolic 54–90; PULSE 82–93; RESP 16–28; TEMP 97.2–98.2; O2SAT 95–99
[2024-07-27 05:21] LABS: Carbon Dioxide 25 mmol/L (20-31)
[2024-07-27 05:22] LABS: Calcium 9.5 mg/dL (8.7-10.4)
[2024-07-27 05:26] LABS: Blood Urea Nitrogen 10 mg/dL (9-23); Glucose 91 mg/dL (74-106)
[2024-07-27 05:40] LABS: Anion Gap 11 (5-15); Chloride 103 mmol/L (98-107); Sodium 139 mmol/L (136-145)
[2024-07-27 05:41] LABS: Potassium 3.2 mmol/L (3.5-5.1)
[2024-07-27] MEDS: LEVOTHYROXINE SODIUM 25 MCG TAB PO SCH (05:52)
[2024-07-27] MEDS: FAMOTIDINE 20 MG TAB PO SCH (09:17)
[2024-07-27] MEDS: ASPirin-EC 81 mg tab PO SCH (09:17)
[2024-07-27] MEDS: NIFEdipine ER 30 MG TAB PO SCH (09:18)
[2024-07-27] MEDS: ENOXAPARIN SOD 40 MG/0.4 ML SYRINGE SC SCH (09:20)
[2024-07-27] MEDS: LISINOPRIL 5 MG TAB PO SCH (09:20)
[2024-07-27] MEDS: POTASSIUM CHL 20 Meq TABLET PO ONE (16:22)
[2024-07-28 01:27] VITALS: BP 144/84; PULSE 85; RESP 20; TEMP 97.9; O2SAT 96
[2024-07-28 05:00] VITALS: BP 145/82; PULSE 81; RESP 19; TEMP 97.4; O2SAT 97
[2024-07-28 08:46] LABS: Chloride 101 mmol/L (98-107); Potassium 3.7 mmol/L (3.5-5.1); Sodium 138 mmol/L (136-145)
[2024-07-28 08:47] LABS: Anion Gap 9 (5-15); Carbon Dioxide 28 mmol/L (20-31)
[2024-07-28 08:52] LABS: BUN/Creatinine Ratio 9.6 (10.0-20.0)
[2024-07-28 08:55] LABS: Blood Urea Nitrogen 8 mg/dL (9-23); Calcium 10.6 mg/dL (8.7-10.4); Glucose 106 mg/dL (74-106)
[2024-07-28 09:00] VITALS: BP 150/86; PULSE 76; RESP 17; TEMP 98; O2SAT 96
[2024-07-28] MEDS ORDERED: NITR-52 PO (10:46)
[2024-07-28] MEDS ORDERED: LEVO75TA6 PO ×2 (10:47→10:48)
[2024-07-28 11:26] VITALS: BP 150/86; TEMP 36.7
[2024-07-28 13:02] VITALS: BP 149/83; PULSE 86; RESP 17; TEMP 98.1; O2SAT 97
--- NOTE | 2024-07-28 15:46 | DVHDSRES ---
Discharge Summary Date of Admission Resident Creating Document: LARRY GREER RESIDENT Jul 26, 2024 at 18:19 Date of Discharge: Jul 28, 2024 Admitting Diagnosis Bilateral feet swelling, rule out cellulitis Wounds: No wound was present. Labs/Diagnostic Data: Laboratory Results Test 07/28/24 08:17 07/26/24 21:59 07/26/24 20:00 07/26/24 18:35 Sodium Level 138 mmol/L (136-145) Potassium Level 3.7 mmol/L (3.5-5.1) Chloride Level 101 mmol/L (98-107) Carbon Dioxide Level 28 mmol/L (20-31) Anion Gap 9 (5-15) Blood Urea Nitrogen 8 mg/dL (9-23) Creatinine 0.83 mg/dL (0.550-1.02) Glomerular Filtration Rate Calc 71 mL/min (>90) BUN/Creatinine Ratio 9.6 (10.0-20.0) Serum Glucose 106 mg/dL (74-106) Calcium Level 10.6 mg/dL (8.7-10.4) B-Type Natriuretic Peptide 64.57 pg/mL (0-100) Erythrocyte Sedimentation Rate 12 mm/hr (0-20) Influenza Type A Antigen Negative (Negative) Influenza Type B Antigen Negative (Negative) SARS-CoV-2 Antigen (Rapid) Negative (NEGATIVE) Test 07/26/24 16:25 07/26/24 16:00 White Blood Count 4.5 10^3/uL (4.4-10.8) Red Blood Count 5.03 10^6/uL (4.0-5.20) Hemoglobin 15.0 g/dL (12.2-16.2) Hematocrit 44.5 % (36.0-46.0) Mean Corpuscular Volume 88.5 fL (80.0-100.0) Mean Corpuscular Hemoglobin 29.8 pg (28.0-32.0) Mean Corpuscular Hemoglobin Concent 33.7 g/dL (32.0-36.0) Red Cell Distribution Width 14.0 % (11.8-14.3) Platelet Count 168 10^3/uL (140-450) Mean Platelet Volume 10.0 fL (6.9-10.8) Neutrophils (%) (Auto) 65.5 % (37.0-80.0) Lymphocytes (%) (Auto) 18.7 % (10.0-50.0) Monocytes (%) (Auto) 14.1 % (0.0-12.0) Eosinophils (%) (Auto) 1.1 % (0.0-7.0) Basophils (%) (Auto) 0.6 % (0.0-2.0) Neutrophils # (Auto) 2.9 10 ^3/uL (1.6-8.6) Lymphocytes # (Auto) 0.8 10 ^3/uL (0.4-5.4) Monocytes # (Auto) 0.6 10 ^3/uL (0-1.3) Eosinophils # (Auto) 0 10 ^3/uL (0-0.8) Basophils # (Auto) 0 10 ^3/uL (0-0.2) Nucleated Red Blood Cells 0.1 % Lactic Acid Level 1.4 mmol/L (0.4-2.0) Uric Acid 4.5 mg/dL (3.1-7.8) Thyroid Stimulating Hormone (TSH) 22.04 uIU/mL (0.55-4.78) Urine Color Yellow (Yellow) Urine Clarity Clear (Clear) Urine pH 6.0 (5.0-9.0) Urine Specific [place] 1.023 (1.001-1.035) Urine Protein 1+ (Negative) Urine Ketones Negative (Negative) Urine Blood 2+ /uL (Negative) Urine Nitrite Negative (Negative) Urine Bilirubin Negative (Negative) Urine Urobilinogen Normal mg/dL (Negative) Urine Leukocyte Esterase 2+ /uL (Negative) Urine RBC 10 /hpf (0 - 4) Urine Microscopic WBC 5 /HPF (0-5) Urine Squamous Epithelial Cells Few /hpf (<5) Urine Bacteria None seen /hpf (None Seen) Urine Hyaline Casts Few /lpf (0 - 2) Urine Mucus Few (None Seen) Urine Glucose Normal mg/dL (Normal) Other Laboratory Tests 07/28/24 08:17 07/26/24 16:25 Brief Hx & Hospital Course: This is a 79-year-old female with past medical history of hypertension, hypothyroidism presented to the ED with a chief complaint of pain and swelling of both feet for 4 days prior to this admission . The patient states that without any provocative factors the swelling of both feet started suddenly and getting worse that prompted this visit. The patient also mentioned dysuria, urgency for the same duration. She denied chest pain, shortness of breath, palpitation, dizziness, blurred vision, abdominal pain, nausea, vomiting, altered bowel habit, positive sick contact or any recent traveling. Hospital course: Bilateral feet x-ray demonstrated no acute fracture or dislocation and Doppler DVT scan of the lower limb excluded DVT. UA was consistent with UTI and hematuria and CT abdomen pelvis without contrast demonstrated nonobstructive renal stone. TSH was 22.04 due to improper use of Levothyroxine with food which could explain bilateral nonpitting ankle edema. Patient was treated with IV ceftriaxone 1 gm daily , Levothyroxine 75 microgram in Q AM daily, and resumed antihypertensives for blood pressure control. Discharge plan was discussed with the patient and all questions were answered. Patient is being discharged to home with nitrofurantoin 100 mg bid for 5 days and advised to follow up with PCP in 1 week. Physical examination: General Appearance: Alert, Oriented X3, Cooperative, No acute distress HEENT: Atraumatic, PERRLA, EOMI, Mucous membrane moist/pink Respiratory: Clear to auscultation, Normal air movement Cardiovascular: Regular rate, Normal S1, Normal S2, No murmurs, no chest wall tenderness Abdominal: Normal bowel sounds, Soft, No tenderness, No hepatospenomegaly, No masses Extremities: No clubbing, No cyanosis, No edema, Normal pulses, No tenderness/swelling Skin: No rashes, No breakdown, No significant lesion Neuro: Normal gait, Normal speech, Strength at 5/5 X4 ext, Normal tone, Sensation intact, Cranial nerves 3-12 NL, Reflexes 2+ Psych/Mental Status: Mental status NL, Mood NL Operations or Procedures CLINICAL INDICATION: PAIN AND REDNESS, NO INJURY FINDINGS/IMPRESSION: There is no evidence of acute fracture or dislocation. The visualized joint space is well maintained. The alignment is anatomical. There is no radiopaque foreign body. Exam: CT CT AB PEL WO CON-NO ORAL OR IV History: hematuria FINDINGS: Evaluation of solid organs is limited due to lack of intravenous contrast use. Findings: Lung Bases: No acute or significant lung base finding. Normal heart size. No pleural or pericardial effusion. Liver: The liver is normal in size. No focal lesions. Gallbladder and Biliary Tree: No calcified gallstones Spleen: Unremarkable Pancreas: The pancreas is grossly normal in appearance. Adrenal Glands: Unremarkable Kidneys: Punctate nonobstructing calculus left kidney. 2.5 cm hypodense lesion cortex right kidney most likely a cyst. Bladder: Grossly unremarkable for degree of distention. Bowel: The stomach is grossly normal in appearance. Small bowel and colon are normal in caliber and distribution. The appendix is not visualized; however, no secondary findings of acute appendicitis identified. Ascites: Absent Lymphadenopathy: No mesenteric, retroperitoneal or periportal lymphadenopathy. Abdominal Wall and Mesentery: Unremarkable. Vasculature: The visualized abdominal aorta is normal in size and caliber. Evaluation of abdominal and pelvic vessels is limited due to lack of intravenous contrast. Pelvic Organs: Unremarkable Musculoskeletal: No aggressive focal bony lesions, acute fractures or dislocation. Soft tissues: Unremarkable IMPRESSION: 1. 2-3 mm distal left ureteral calculus near the ureterovesical junction series 2 image 78. 2. Punctate nonobstructing left renal calculus 3. 2.5 cm cortical cyst right kidney 4. No calcified gallstones 5. No findings to suggest bowel obstruction. Stool throughout the colon Bilateral lower extremity venous duplex Clinical History: To rule out DVT Comparison: None Technique: Duplex Doppler evaluation of the deep venous systems of both lower extremities from the common femoral veins to the popliteal veins including color Doppler and spectral/pulsed waveform analysis was performed. Findings: RIGHT SIDE: The common femoral vein demonstrates appropriate compressibility and waveform variability . There is compressibility/patency of the great saphenous vein at the proximal thigh . The femoral vein demonstrates appropriate compressibility and waveform variability . The deep femoral vein demonstrates appropriate compressibility and waveform variability . The popliteal vein demonstrates appropriate compressibility and waveform variability . There is color flow at the tibioperoneal trunk and in the posterior tibial vein. A 3.6 x 1.1 x 3.8 cm Bazzi's cyst noted. LEFT SIDE: The common femoral vein demonstrates appropriate compressibility and waveform variability . There is compressibility/patency of the great saphenous vein at the proximal thigh . The femoral vein demonstrates appropriate compressibility and waveform variability . The deep femoral vein demonstrates appropriate compressibility and waveform variability . The popliteal vein demonstrates appropriate compressibility and waveform variability . There is color flow at the tibioperoneal trunk and in the posterior tibial vein. Impression: 1. No right or left femoropopliteal venous thrombosis. 2. Moderate-size right Bazzi's cyst. Condition at Discharge: Stable Final Diagnosis/Problems List # Bilateral feet swelling, ruled out cellulitis # Ruled out DVT # Severe hypothyroidism likely due to improper use of levothyroxine. # Acute complicated cystitis # Punctate nonobstructive left renal calculus # Hypokalemia resolved # Hypertensive heart disease Discharge Disposition: Home Discharge Instruct/Medications Diet: Cardiac 2g Na,low cholest Activity: No Restrictions, As Tolerated Follow Up/Referral: Follow up with PCP in 1 week Medications: Nitroifurantoin 100 mg p.o. b.i.d. for 5 days. Continue home medications. Discharge Statement: "Patient was advised to return to the ER or call 911 if any headaches, dizziness, shortness of breath, chest pain, abdominal pain, bleeding, fevers, or worsening of medical condition. Patient was counseled about treatment plan, medications, possible side effects, patientverbalized understanding. All questions were answered to the best of my ability. This discharge took greater then 30 minutes in planning, reviewing documentation, counseling the patient, and discussing with other team members." ASSESSMENT ASSESSMENT Assessment # Bilateral feet swelling, ruled out cellulitis # Ruled out DVT # Severe hypothyroidism likely due to improper use of levothyroxine. # Acute complicated cystitis # Punctate nonobstructive left renal calculus # Hypokalemia resolved # Hypertensive heart disease Date of Service: Jul 28, 2024 Billing Provider: MARLEEN SCOTT MD Common Visit Codes: 40949-DVP/OBS DISCH DAY >30min LARRY GREER RESIDENT Jul 28, 2024 15:46 MARLEEN SCOTT MD Jul 29, 2024 11:23
== END 2024-07-28 13:20 | disposition home or self-care (01) | DRG 644 ==
LOC: ER 14:27 → OVERFLOW 18:19 → WEST WING 21:20
PROVIDERS: ADMIT Internal Medicine; ATTEND Internal Medicine
DX: E03.9 Hypothyroidism, unspecified (principal); N30.00 Acute cystitis without hematuria; E87.6 Hypokalemia; I11.9 Hypertensive heart disease without heart failure; N20.0 Calculus of kidney; T38.1X5A Adverse effect of thyroid hormones and substitutes, initial encounter; Z90.710 Acquired absence of both cervix and uterus; Z79.899 Other long term (current) drug therapy; Y92.89 Other specified places as the place of occurrence of the external cause
CPT/HCPCS: 36415; 71045; 73620; 74176; 80048; 81001; 83605; 83880; 84443; 84550; 85025; 85652; 87040; 87086; 87426; 87804; 93970; 96365; 96372; G0378; J3490